=== PATIENT | female | born 1995 | race Hispanic/Latino ===

== ENCOUNTER 2023-03-30 15:23 | Outpatient (CLI) | payer OTHER, SELFPAY ==
--- NOTE | ~2023-03-30 | US_ITS ---
EXAMINATION: US OB follow up DATE: 03/30/2023 16:23 INDICATION: with inconclusive viability. TECHNIQUE: Real-time ultrasound of the pelvis was performed. COMPARISON: None. FINDINGS: There is a single living fetus in variable presentation. The placenta is anterior. heart rate is 165 beats per minute (bpm). The cervical length is 4.5 cm on transabdominal images, which is rqoue l. The amniotic fluid index is 8.7 cm, which is normal. The ovaries are normal. The following biometric data were obtained: Biparietal diameter (BPD): 3.2 cm; head circumference (HC): 12.2 cm; abdominal circumference (AC): 9. 8 cm; femur length (FL): 2.0 cm. These measurements are concordant. Estimated weight is 141 g +/- 21 g. As single measurements, these parameters are each equal to the following estimated gestational ages: BPD: 15 weeks 6 days. HC: 16 weeks 1 days. AC: 15 weeks 6 days. FL: 16 weeks 0 days. estimated gestational age based solely on measurements from this exam is 16 weeks 0 days +/- 1 weeks 1 days. IMPRESSION: 1. Single living fetus in variable presentation. 2. Estimated date of delivery of 09/14/2023. Reviewed, dictated and finalized at location E. SPECIALIST
== END 2023-03-30 15:24 | disposition home or self-care (01) ==
PROVIDERS: PCP Emergency Medicine; Visit Provider Obstetrics & Gynecology
DX: O41.8X20 Other specified disorders of amniotic fluid and membranes, second trimester, not applicable or unspecified (principal); O46.8X2 Other antepartum hemorrhage, second trimester; O36.80X0 Pregnancy with inconclusive fetal viability, not applicable or unspecified; Z3A.00 Weeks of gestation of pregnancy not specified
CPT/HCPCS: 76816

== ENCOUNTER 2023-03-31 08:30 | Outpatient (CLI) | payer OTHER, SELFPAY ==
[2023-03-31 09:04] LABS: Basophils Percent Auto 0.4 % (0.2-1.2); Eosinophils Absolute Auto 0.2 K/mm3 (0-0.3); Eosinophils Percent Auto 1.8 % (0-4.4); Hematocrit 35.2 % (37.0-47.0); Hemoglobin 11.7 g/dL (12.0-15.0); Immature Granulocyte Absolute 0.05 K/mm3 (0.00-0.031); Immature Granulocyte Percent A 0.5 % (0-0.5); Lymphocytes Absolute Auto 2.12 K/mm3 (0.9-3.2); Lymphocytes Percent Auto 22.8 % (18.3-44.2); Mean Corpuscular HGB Conc 33.2 g/dl (32-36); Mean Corpuscular Hemoglobin 29.5 pg (26-34); Mean Corpuscular Volume 88.7 fl (80-100); Mean Platelet Volume 10.5 fl (7.4-10.4); Monocytes Absolute Auto 0.6 K/mm3 (0.1-0.6); Monocytes Percent Auto 6.3 % (2.6-8.5); Neutrophils Absolute Auto 6.3 K/mm3 (1.3-6.7); Neutrophils Percent Auto 68.2 % (45.5-73.1); Platelet Count Result 256 k/mm3 (150-375); Red Blood Count 3.97 M/mm3 (4.2-5.4); White Blood Count 9.3 K/mm3 (4.5-10.0)
[2023-03-31 09:49] LABS: HIV 1/2 Ab P24 Ag Result Negative (Negative)
[2023-03-31 10:10] LABS: Hepatitis B Surface Antigen Negative (Negative); Rubella IgG Antibody 2.2 IU/ML
[2023-03-31 10:26] LABS: Hepatitis C Virus Antibody Negative (Negative)
[2023-03-31 12:09] LABS: Rapid Plasma Reagin Non-Reactive (NonReactive)
[2023-04-02 17:55] LABS: Varicella IgG Antibody <135.00 Index (>=165.00)
== END 2023-03-31 08:31 | disposition home or self-care (01) ==
PROVIDERS: PCP Emergency Medicine; Visit Provider Registered Nurse
DX: Z34.91 Encounter for supervision of normal pregnancy, unspecified, first trimester (principal)
CPT/HCPCS: 36415; 84443; 85025; 86592; 86703; 86762; 86787; 86803; 86850; 86900; 86901; 87340; G0432

== ENCOUNTER 2023-08-27 23:46 | Inpatient (IN) | payer OTHER, SELFPAY ==
[2023-08-28] VITALS (63 sets, daily range): BP systolic 88–160; BP diastolic 33–122; PULSE 57–118; RESP 16–18; TEMP 36.9–37.8; O2SAT 91–100; BMI 31.4
[2023-08-28] MEDS: LACTATED RINGERS 1,000 ML 125 ML IV CONT ×2 (00:45→03:30)
[2023-08-28] MEDS: AMPICILLIN 2 GM/NS 100 ML 2 GM/100 ML BAG IVPB (00:45)
[2023-08-28 00:53] LABS: Basophils Absolute Auto 0.1 K/mm3 (0.0-0.1); Basophils Percent Auto 0.4 % (0.2-1.2); Eosinophils Absolute Auto 0.1 K/mm3 (0-0.3); Hematocrit 41.5 % (37.0-47.0); Hemoglobin 13.7 g/dL (12.0-15.0); Immature Granulocyte Absolute 0.13 K/mm3 (0.00-0.031); Lymphocytes Percent Auto 27.8 % (18.3-44.2); Mean Corpuscular Hemoglobin 28.5 pg (26-34); Mean Corpuscular Volume 86.5 fl (80-100); Monocytes Percent Auto 7.1 % (2.6-8.5); Neutrophils Absolute Auto 8.6 K/mm3 (1.3-6.7); Neutrophils Percent Auto 62.7 % (45.5-73.1); Platelet Count Result 283 k/mm3 (150-375); Red Cell Distribution Width 13.6 % (11.5-14.5); White Blood Count 13.7 K/mm3 (4.5-10.0)
--- NOTE | 2023-08-28 00:57 | PC.NURSE ---
0004- MD responded to page. MD notified of pts arrival to unit with complaints of contractions. MD notified that pts request to and per pt statement approved to by Dr. Cruz. RN instructed to admit pt for labor as well as get pt epidural. 0005- RN discussed plan of care with pt. Pt refuses epidural. Charge nurse notified. Charge nurse at bedside educating pt on risks and benefits of not having epidural in place.
--- NOTE | 2023-08-28 02:44 | PM.IMHP ---
H&P: HPI History of Present Illness Date/Time: 08/28/23 02:44 Chief Complaint: Contractions Narrative: 28 y/o at 38 2/7 weeks gestation with prior LTCS here with contractions. She wants TOLAC. Prior documented LTCS, labor complicated by chorioamnionitis. Ultrasound exam shows marginal cord insertion. Review of Systems Review of Systems: All systems reviewed & are unremarkable except as noted in HPI and below PMFSH Surgical History Surgical History (Updated 08/28/23 @ 02:53 by Tato Amaral MD) History of section Family History Family History Other Diabetes mellitus Social History Social History Smoking packs per day: 0 Smoking cigarettes per day: 0.0 Smoking status: Never smoker Second hand tobacco smoke exposure: No Alcohol intake: unknown Substance use: former Substance use type: marijuana Lack of Transportation: No Lack of Food: Never True Current Housing: I Have Housing Concerned About Future Housing: No Difficulty Paying Gas/Electric Bills: No Difficulty Paying for Meds: No Currently Unemployed: No Education: Bachelor's Degree Difficulty w/ Childcare or Family Care: No Meds Home Medications and Allergies Home Medications Medication Instructions Recorded Confirmed Type vitamin#30 30 mg iron-10 cap PO 02/09/23 02/09/23 History mg iron-folic acid 1 mg-omg3 capsule Allergies Allergy/AdvReac Type Severity Reaction Status Date / Time No Known Allergies Allergy Verified 05/13/23 15:16 Vital Signs Vital Signs - 24 hr 08/28/23 00:56 08/28/23 01:01 08/28/23 01:06 Pulse Rate Blood Pressure Pulse Oximetry 91 98 94 08/28/23 01:11 08/28/23 01:15 08/28/23 01:20 Pulse Rate Blood Pressure Pulse Oximetry 97 100 100 08/28/23 01:22 08/28/23 01:27 08/28/23 01:32 Pulse Rate Blood Pressure Pulse Oximetry 100 100 100 08/28/23 01:37 08/28/23 01:39 08/28/23 01:40 Pulse Rate Blood Pressure Pulse Oximetry 100 100 100 08/28/23 01:45 08/28/23 01:50 08/28/23 01:55 Pulse Rate 88 Blood Pressure 120/67 Pulse Oximetry 96 97 94 08/28/23 02:00 08/28/23 02:05 08/28/23 02:10 Pulse Rate 86 Blood Pressure 127/75 Pulse Oximetry 97 99 100 Exam Const: Orientation/consciousness: patient oriented x3 Other: Well-developed, well-nourished female in no acute distress. Neck: Thyroid: thyroid normal Lymphatic: no lymphadenopathy noted (in neck, axilla or inguinal nodes) Resp: Effort & Inspection: normal respiratory effort Auscultation: clear to auscultation bilaterally Cardio: Rate: regular rate Rhythm: regular rhythm Heart sounds: S1 normal heart sound present and S2 normal heart sound present GI: Other: ABD: Soft, nontender, nondistended, gravid. NST 150 with variable decelerations. No guarding or rebound tenderness. No hepatosplenomegaly. : General: Yes no CVA tenderness Other: Cervix 4-5/80/-2. AROM with clear fluid. IUPC placed. Back/Spine/Pelvis: Back: no CVA tenderness Skin: General skin exam: normal color and no rashes or lesions noted Neuro: General: patient oriented x3 Extrem: Other: Extremities: nontender with no edema Psych: Mental Status: mental status grossly normal Affect: normal affect H&P: Results Labs Labs: Short CBC 08/28/23 Range/Units 00:40 WBC 13.7 H (4.5-10.0) K/mm3 Hgb 13.7 (12.0-15.0) g/dL Hct 41.5 (37.0-47.0) % Plt Count 283 (150-375) k/mm3 Assessment and Plan Assessment and plan (1) Term : Code(s): Z34.90 - Encounter for supervision of normal , unspecified, unspecified trimester Status: Acute Assessment and Plan: A: IUP at 38 2/7 weeks with prior LTCS, now in labor, desiring trial of labor after (TOLAC.) GBS p
--- NOTE | 2023-08-28 03:34 | WPDANESEPP ---
Anes - Eval Pre Procedure Procedure: Labor epidural Date/Time: 08/28/23 03:34 Pre Op Diagnosis: Contractions Patient Data Age: 28 Gender: F Height: Weight: Last Vital Signs Temp 36.9 C 08/28/23 02:48 Pulse 86 08/28/23 02:00 BP 127/75 08/28/23 02:00 Pulse Ox 100 08/28/23 02:10 Allergies Allergy/AdvReac Type Severity Reaction Status Date / Time No Known Allergies Allergy Verified 05/13/23 15:16 Home Medications Medication Instructions Recorded Confirmed Type vitamin#30 30 mg iron-10 cap PO 02/09/23 02/09/23 History mg iron-folic acid 1 mg-omg3 capsule Laboratory Tests 08/28/23 00:40 WBC 13.7 H K/mm3 (4.5-10.0) RBC 4.80 M/mm3 (4.2-5.4) Hgb 13.7 g/dL (12.0-15.0) Hct 41.5 % (37.0-47.0) MCV 86.5 fl (80-100) MCH 28.5 pg (26-34) MCHC 33.0 g/dl (32-36) RDW 13.6 % (11.5-14.5) Plt Count 283 k/mm3 (150-375) MPV 11.0 H fl (7.4-10.4) Immature Gran % (Auto) 1.0 H % (0-0.5) Neut % (Auto) 62.7 % (45.5-73.1) Lymph % (Auto) 27.8 % (18.3-44.2) [place] % (Auto) 7.1 % (2.6-8.5) Eos % (Auto) 1.0 % (0-4.4) Baso % (Auto) 0.4 % (0.2-1.2) Lymph # (Auto) 3.80 H K/mm3 (0.9-3.2) [place] # (Auto) 1.0 H K/mm3 (0.1-0.6) Eos # (Auto) 0.1 K/mm3 (0-0.3) Baso # (Auto) 0.1 K/mm3 (0.0-0.1) Abs Immat Gran (auto) 0.13 H K/mm3 (0.00-0.031) Absolute Neuts (auto) 8.6 H K/mm3 (1.3-6.7) Absolute Nucleated RBC 0.000 K/mm3 (0.0-0.012) Nucleated RBC % 0.0 % (0.0-0.2) RPR Pending Blood Type O Positive Antibody Screen Negative Patient hx anesthesia problems: none Family hx anesthesia problems: none Results Review: All pre-operative results and documents have been reviewed as part of the pre-operative evaluation. [facility] Surgical History Surgical History History of section Family History Family History Other Diabetes mellitus Social History Social History Smoking packs per day: 0 Smoking cigarettes per day: 0.0 Smoking status: Never smoker Second hand tobacco smoke exposure: No Alcohol intake: unknown Substance use: former Substance use type: marijuana Lack of Transportation: No Lack of Food: Never True Current Housing: I Have Housing Concerned About Future Housing: No Difficulty Paying Gas/Electric Bills: No Difficulty Paying for Meds: No Currently Unemployed: No Education: Bachelor's Degree Difficulty w/ Childcare or Family Care: No Exam Day of Procedure 08/28/23 03:34 Patient weight: obese Heart: regular rate and rhythm Lungs: normal air movement Airway: Mallampati scale Neurological: alert and oriented
[2023-08-28] MEDS: AMPICILLIN 1 GM/NS 50 ML 1 GM/50 ML BAG IVPB (04:45)
[2023-08-28] MEDS: LIDOCAINE HCL 1% LOCAL INJ 20 ML VIAL (05:27)
[2023-08-28] MEDS: OXYTOCIN 30 UNITS/NS 500 ML 30 UNITS/500 ML BAG 999 UNITS IV CONT (05:32)
--- NOTE | 2023-08-28 05:54 | PM.OBPRVD ---
OB - Vaginal Delivery Note Procedure Delivery date: 08/28/23 Events: Positive Group B Strep (GBS) and Previous Delivery Induction method: None Delivery augmentation: Rupture of Membranes Delivery monitor: External FHT, External Uterine and Internal Uterine Route of delivery: Episiotomy description: None Laceration Description: Periurethral and Perineal - 1st Degree Delivery repair: vicryl (3-0) Specimen: Yes (cord blood) Quantitative Blood Loss (ml): 220 Anesthesia type: Local (1% lidocaine) Disposition: PACU Complications: None Narrative: 28 y/o at 38 2/7 weeks gestation who presented to the hospital with contractions. Labor diagnosed. Ampicillin given for GBS colonization. She had prior and strongly desired trial of labor. We reviewed risks / benefits / alternatives in detail, and I offered repeat . She declined. Amniotomy was performed with return of clear fluid. She received an epidural for pain control. Her labor progressed without further stimulation, and her cervix dilated completely. She pushed and delivered the 's head to the perineum, followed by the body. A loose nuchal cord x 2 was reduced and the nose and mouth were bulb suctioned. After a delay, the cord was clamped and cut. The infant was handed off the field. Cord blood was collected. The placenta delivered spontaneously and was remarkable for marginal cord insertion. The usual 3 vessel cord was noted. Bilateral labial and periurethral lacerations, were noted, as was a first degree perineal laceration. A total of 16 mL of 1% lidocaine was administered for additional anesthesia, and the lacerations were reapproximated with 3-0 Vicryl in interrupted figure of eight fashion. Excellent hemostasis resulted as did excellent reapproximation of the normal anatomy. Needle and instrument counts were correct. The patient was taken to recovery room in stable condition. The infant went to the nursery in stable condition. I was present and scrubbed for the entire delivery. Baby Date of : 08/28/23 Time of : 05:27 Weeks of gestation at delivery: 38 gender: Male presentation: vertex position: Left Occiput Anterior Placenta delivery description: Spontaneous and Abnormal Configuration (marginal cord insertion) Cord Vessel Description: 3 Vessels and Nuchal Cord (x2) score one minute: 8 score five minutes: 9
--- NOTE | 2023-08-28 06:03 | PM.OBDSVD ---
DS: Admitting Diagnosis Discharge Date 08/29/23 Admitting Diagnosis IUP at 38 2/7 weeks Labor Prior GBS colonization DS: Discharge Diagnosis Discharge Diagnosis (1) , delivered: Code(s): O34.219 - Maternal care for unspecified type scar from previous delivery Status: Acute (2) GBS (group B Streptococcus carrier), +RV culture, currently : Code(s): O99.820 - Streptococcus B carrier state complicating Status: Acute OB - DS: Summary OB Procedures : NST OB Procedures Intrapartum: and GBS prophylaxis OB Procedures: : None Peripartum Data Laceration Description: Periurethral and Perineal - 1st Degree Episiotomy description: None Time Spent with Patient Time attestation: Total time spent providing and/or coordinating discharge services: DS: Data Data Completed and Pending Labs on day of discharge: Labs from last 24 hours 08/28/23 00:40 WBC 13.7 H RBC 4.80 Hgb 13.7 Hct 41.5 MCV 86.5 MCH 28.5 MCHC 33.0 RDW 13.6 Plt Count 283 MPV 11.0 H Immature Gran % (Auto) 1.0 H Neut % (Auto) 62.7 Lymph % (Auto) 27.8 [place] % (Auto) 7.1 Eos % (Auto) 1.0 Baso % (Auto) 0.4 Lymph # (Auto) 3.80 H [place] # (Auto) 1.0 H Eos # (Auto) 0.1 Baso # (Auto) 0.1 Abs Immat Gran (auto) 0.13 H Absolute Neuts (auto) 8.6 H Absolute Nucleated RBC 0.000 Nucleated RBC % 0.0 RPR Pending Blood Type O Positive Antibody Screen Negative Discharge Plan Discharge Attending physician on discharge: Kristy Cruz Discharging Clinician: Tato Amaral Patient Disposition: Home, Self-Care Activity: pelvic rest Diet: regular Discharge Instructions: Call or return if temperature above 100.4? F, increased abdominal pain, increased vaginal bleeding or any new problems. Stand Alone Forms: General Discharge Information Follow-up/Referrals: Kristy Cruz MD [Physician] - 6 Weeks Discharge Medications: New ibuprofen 600 mg tablet 600 mg PO Q6H PRN (Reason: cramps) Qty: 30 0RF Continued PNV #[id number] 30 mg iron-10 mg iron-1 mg capsule PO Date of admission: 08/27/23 23:46 Primary Care Provider: Bhargav Grant Admitting Provider: Kristy Cruz Attending physician on admission: Kristy Cruz Condition: Stable
[2023-08-28] MEDS: OXYTOCIN 30 UNITS/NS 500 ML 30 UNITS/500 ML BAG 125 UNITS IV CONT (06:19)
--- NOTE | 2023-08-28 06:50 | OBADM ---
This patient, Patricia Capellan, admitted to the OB room Labor/Delivery/Recovery 106 for observation. Patient/family oriented to hospital policies and general routines including ID bracelet, bed and alarms, visiting hours, pain management, procedures, bathroom and other care routines, personal items, smoking policy, room service/diet, and visiting hours. Patient/Family are encouraged to report perceived risks to care and to ask questions if they do not understand what they are told or what they should do.
[2023-08-28] MEDS: ACETAMINOPHEN 325 MG TABLET 650 MG PO ×2 (07:49→15:33)
[2023-08-28] MEDS: LANOLIN (LANSINOH) 7.5 GM CREAM 1 APPLIC TOPICAL (07:50)
[2023-08-28] MEDS: BENZOCAINE 20% AER SPR (*SP) 56 GM CAN 1 SPRAY TOPICAL (07:50)
[2023-08-28] MEDS: WITCH HAZEL 40 PADS 1 PAD TOPICAL (07:50)
[2023-08-28] MEDS: IBUPROFEN 600 MG TABLET PO ×2 (10:02→23:03)
[2023-08-29 06:02] LABS: Hematocrit 31.8 % (37.0-47.0); Hemoglobin 10.3 g/dL (12.0-15.0)
--- NOTE | 2023-08-29 08:06 | PM.OBPNVD ---
OB - PN: Subj Subjective Date/time seen: 08/29/23 08:06 Narrative: Pain OK. Would like to go home if OK with peds. Declines circ. OB - PN: Obj Data Labs 08/29/23 05:02 Labs: Laboratory Results - last 24 hr 08/29/23 05:02 Hgb 10.3 L D Hct 31.8 L OB - PN A/P Plan Comments: A: PPD#1, doing well. P: Home to f/u 6 weeks. Exam Psych: Other: AVSS ABD soft, nontender, fundus firm EXT nontender
[2023-08-29 08:15] VITALS: BP 133/89; PULSE 54; RESP 20; TEMP 36.4; O2SAT 100
[2023-08-29] MEDS: IBUPROFEN 600 MG TABLET PO (08:50)
[2023-08-29] MEDS: MULTIVIT/MIN/PREN/FOL AC/IRON TABLET 1 TAB PO (08:51)
--- NOTE | 2023-08-29 09:48 | WPDANLDPN2 ---
Anes-Prog Note L&D Date/Time: 08/29/23 09:48 Comfortable throughout: labor and delivery Neuraxial method: epidural Epidural/Spinal procedure site: clean & non-tender Neuro status: Neuro function grossly intact. Cardiovascular status: normal Respiratory status: normal Airway patency: baseline Mental status: baseline Post-Op hydration status: normal Vital Signs: Last Vital Signs Temp 37.3 C 08/28/23 20:00 Pulse 71 08/28/23 20:00 Resp 18 08/28/23 20:00 BP 112/64 08/28/23 20:00 Pulse Ox 98 08/28/23 20:00 O2 Del Method Room Air 08/28/23 12:27 Pain score (VAS): 0 I/O: Intake & Output 08/28/23 08/29/23 08/29/23 23:59 07:59 15:59 Intake Total 240 Balance 240 Post-procedural complaints: none Patient feedback: Patient satisfied with anesthetic care.
[2023-08-29] MEDS: MEASLES,MUMPS,RUBELLA VACCINE 0.5 ML VIAL SUB-Q (11:04)
--- NOTE | 2023-08-29 11:16 | PC.NURSE ---
Patient viewed the discharge video Mother & Baby Care, The First Two Weeks . Patient was given the opportunity and encouraged to ask questions. Patient verbalized understanding of information shared and has been given the mother/baby guide for home reference.
[2023-08-30 13:26] VITALS: BP 114/73; PULSE 69; RESP 16; TEMP 36.9; O2SAT 99
[2023-08-30 14:34] LABS: Rapid Plasma Reagin Non-Reactive (NonReactive)
== END 2023-08-29 12:55 | disposition home or self-care (01) | DRG 805 ==
LOC: ANHLDR 08-28 06:05 → ANHOB2 08-29 10:24 → ANHLDR 08-31 10:40 → ANHOB2 08-31 10:40
PROVIDERS: Admitting Provider Obstetrics & Gynecology Gynecology; PCP Emergency Medicine; Visit Provider Obstetrics & Gynecology
DX: O34.219 Maternal care for unspecified type scar from previous cesarean delivery (principal); O41.1230 Chorioamnionitis, third trimester, not applicable or unspecified; Z37.0 Single live birth; O99.824 Streptococcus B carrier state complicating childbirth; O70.0 First degree perineal laceration during delivery; O69.81X0 Labor and delivery complicated by cord around neck, without compression, not applicable or unspecified; Z3A.38 38 weeks gestation of pregnancy
CPT/HCPCS: 36415; 85014; 85018; 85025; 86592; 86850; 86900; 86901; 90710; A9270; J0290; J2590; J7120